=== PATIENT | female | born 1965 | race Caucasian/White ===

== ENCOUNTER 2022-04-16 20:50 | Emergency (ER) | payer BC ==
[2022-04-16] MEDS ORDERED: Amoxicillin/Clavulanate K 875-125 MG Tab PO ONE (23:59)
[2022-04-16] MEDS ORDERED: Diphtheria,Pertussis(Acell),Tetanus Vaccine 0.5 ML Syringe IM ONE (23:59)
[2022-04-17] MEDS ORDERED: Ibuprofen 600 MG Tab PO ONE
== END 2022-04-17 00:50 | disposition home or self-care (01) ==
LOC: MW.ED 20:50
DX: S61.452A Open bite of left hand, initial encounter (principal); Z23 Encounter for immunization; W54.0XXA Bitten by dog, initial encounter
CPT/HCPCS: 73130; 90471; 90715; 99283; A9270